=== PATIENT | female | born 1970 | race African-American/Black ===

== ENCOUNTER → 2025-02-26 | Day surgery (SDC) | payer OTHER ==
[~2025-02-26] MED LIST: BERBERINE500 MG PO; CITRULLINE PO; D3 PLUS K2 DOT1 EACH PO; DOXAZOSIN MESYLA8 MG PO; LIDOCAINE HCL 2% LOCAL INJ 5 ML SDV VIAL INJ ONE; MORINGA PO; ONDANSETRON HCL INJ 2MG/ML 2ML 2 MG/ML VIAL ONE; PANTOPRAZOLE SO40 MG PO; PRO BIOTIC PO; PROPOFOL IV EMULSION 50 ML IV ONE; TRIAMTERENE-HCTZ1 EA PO; TUMERIC PO; ZINC30 M1 PO; [UNRECOGNIZED DRUG - OTHER] PO; [UNRECOGNIZED DRUG - OTHER] PO
[2025-02-26] MEDS: LACTATED RINGER'S 1,000 ML ONE (08:59)
[2025-02-26 09:43] VITALS: TEMP 97.3
[2025-02-26 10:00] VITALS: BP 132/81; PULSE 74; RESP 16; O2SAT 98
== END | disposition home or self-care (01) ==
LOC: OR 05:59
PROVIDERS: ATTEND Internal Medicine Gastroenterology
DX: Z12.11 Encounter for screening for malignant neoplasm of colon (principal); K21.9 Gastro-esophageal reflux disease without esophagitis; K31.89 Other diseases of stomach and duodenum; K44.9 Diaphragmatic hernia without obstruction or gangrene; K57.30 Diverticulosis of large intestine without perforation or abscess without bleeding; K64.8 Other hemorrhoids; I10 Essential (primary) hypertension; R01.1 Cardiac murmur, unspecified; M32.9 Systemic lupus erythematosus, unspecified; E66.813 Obesity, class 3; Z79.1 Long term (current) use of non-steroidal anti-inflammatories (NSAID); Z79.899 Other long term (current) drug therapy; Z68.42 Body mass index [BMI] 45.0-49.9, adult
CPT/HCPCS: 43239; 45378; J2003; J2405